=== PATIENT | male | born 1950 | race Caucasian/White ===

== ENCOUNTER 2021-12-24 13:47 | Emergency (ER) | payer MEDICARE, BC ==
[2021-12-24 15:54] LABS: CARBON DIOXIDE,CO2 35.8 mmol/L (21.0-32.0); POTASSIUM,K 4.3 mmol/L (3.5-5.1)
[2021-12-24] MEDS ORDERED: Cefuroxime 250 MG Tab PO STA (15:59)
== END 2021-12-24 16:35 | disposition home or self-care (01) ==
LOC: MW.ED 13:47
DX: L03.115 Cellulitis of right lower limb (principal); R60.0 Localized edema; I10 Essential (primary) hypertension; Z79.899 Other long term (current) drug therapy; Z79.82 Long term (current) use of aspirin
CPT/HCPCS: 36415; 80048; 85025; 85652; 86140; 93971; 99284; A9270